=== PATIENT | female | born 1960 | race Two or more races ===

== ENCOUNTER 2023-05-22 07:32 | Outpatient (CLI) | payer OTHER | END 2023-05-22 07:39 | disposition home or self-care (01) | LOC: RAD 07:32 | PROVIDERS: ATTEND Otolaryngology Plastic Surgery within the Head & Neck | DX: R13.19 Other dysphagia (principal); E06.9 Thyroiditis, unspecified; M35.00 Sjogren syndrome, unspecified ==

== ENCOUNTER 2023-05-31 09:28 | Outpatient (CLI) | payer OTHER | END 2023-05-31 09:30 | disposition home or self-care (01) | LOC: SONOGRAMA 09:28 | PROVIDERS: ATTEND Pathology Anatomic Pathology | DX: D44.0 Neoplasm of uncertain behavior of thyroid gland (principal); E07.9 Disorder of thyroid, unspecified ==

== ENCOUNTER 2024-01-15 07:04 | Outpatient (CLI) | payer OTHER | END 2024-01-15 07:11 | disposition home or self-care (01) | LOC: MAMO-SONO 07:04 | PROVIDERS: ATTEND Surgery | DX: E04.9 Nontoxic goiter, unspecified (principal); N60.11 Diffuse cystic mastopathy of right breast; N60.12 Diffuse cystic mastopathy of left breast; Z12.31 Encounter for screening mammogram for malignant neoplasm of breast ==

== ENCOUNTER 2025-02-09 09:54 | Outpatient (CLI) | payer OTHER | END 2025-02-09 09:56 | disposition home or self-care (01) | LOC: MAMO-SONO 09:54 | PROVIDERS: ATTEND Internal Medicine | DX: N64.4 Mastodynia (principal); Z12.31 Encounter for screening mammogram for malignant neoplasm of breast ==

== ENCOUNTER 2025-02-11 13:35 | Outpatient (CLI) | payer OTHER | END 2025-02-11 13:38 | disposition home or self-care (01) | LOC: SONOGRAMA 13:35 | PROVIDERS: ATTEND Internal Medicine | DX: E04.9 Nontoxic goiter, unspecified (principal) ==